=== PATIENT | female | born 1975 | race Caucasian/White ===

== ENCOUNTER → 2016-05-25 | Outpatient (CLI) | payer OTHER ==
[2016-04-26 20:34] VITALS: BP 128/60
[~2016-05-25] MED LIST: AMLO5TAB2 PO; ASPI325T11 PO; ATOR40TA59 PO; BUPR100T11 PO; BUSP10TA PO; CLON0.5T3 PO; LORA0.5T PO; METO25TA4 PO; ONDA4TAB7 PO; OXYC-323 PO; PROP20TA PO; RANI300T3 PO; TRAM-29 PO; TRIA1CAP3 PO; VENL150C PO; VENL75CA6 PO
--- NOTE | 2016-05-25 09:08 | RAD ---
Indication pain AP and lateral views of the cervical spine were obtained as well as an odontoid view and a swimmer's view. Vertebral height is well maintained. Alignment is normal. Significant disc space narrowing is not seen at any level. Small osteophyte is noted associated with C5. The prevertebral soft tissues appear normal. IMPRESSION: No acute or significant finding in the cervical spine on plain films
--- NOTE | 2016-05-25 09:11 | RAD ---
Indication pain. Externally and internally rotated views of the right shoulder were obtained as well as a Y view. No bony abnormality is seen
--- NOTE | 2016-05-25 09:13 | RAD ---
Indication pain. PA and lateral views of the chest were obtained. Comparison is made to an examination 12/22/2015. Note is made of a CT examination of the chest 04/13/2016. The heart and pulmonary vessels appear normal. The lungs are clear. There is no pleural fluid or pneumothorax. IMPRESSION: No acute or significant finding in the chest
== END | disposition home or self-care (01) ==
LOC: RAD 08:01
PROVIDERS: ATTEND Surgery
DX: G30.9 Alzheimer's disease, unspecified (principal); M75.41 Impingement syndrome of right shoulder; M54.2 Cervicalgia; R09.1 Pleurisy
CPT/HCPCS: 71020; 72040; 73030

== ENCOUNTER → 2016-12-26 | Outpatient (CLI) | payer OTHER ==
[2016-04-26 20:34] VITALS: BP 128/60
[~2016-12-26] MED LIST changes: +GADOBUTROL 10 MMOL/10 ML VIAL IV ONE; -TRAM-29 PO; +TRAM-48 PO
--- NOTE | 2016-12-26 11:05 | KCIC ---
Examination: MRI chest without and with IV contrast HISTORY: History of mass on the back, pain COMPARISON: None available TECHNIQUE: Multiplanar, multisequence MR imaging of the right chest back was performed without and with IV contrast. IV contrast used was 8 cc gadavist. FINDINGS: At the site of marker placement in the mid back region, there is a 5.2 x 1.8 x 5.6 cm fatty lesion in the subcutaneous region of the right mid back transverse, AP, CC dimension without obvious enhancement or thickened / nodular septations, likely a lipoma On the postcontrast images no obvious enhancement of this lesion identified. IMPRESSION: 1. Fatty lesion identified in the right posterior mid back pain in the subcutaneous region centimeters dimension of 5.6 cm likely a lipoma without obvious enhancement. Electronically signed by: Owen Casas MD (12/26/2016 11:02 AM) [facility]
== END | disposition home or self-care (01) ==
LOC: KCIC MRI 09:05
PROVIDERS: ATTEND Specialist
DX: M54.6 Pain in thoracic spine (principal); R22.2 Localized swelling, mass and lump, trunk
CPT/HCPCS: 71552; 82565; A9585

== ENCOUNTER → 2017-07-31 | Outpatient (CLI) | payer OTHER | END | disposition home or self-care (01) | LOC: KCIC US 08:16 | DX: N93.9 Abnormal uterine and vaginal bleeding, unspecified (principal) | CPT/HCPCS: 76830; 76856 ==

== ENCOUNTER → 2017-11-20 | Day surgery (SDC) | payer OTHER ==
[~2017-11-20] MED LIST changes: +0.9 % SODIUM CHLORIDE 10 ML DISP.SYRIN. IV; -AMLO5TAB2 PO; -ASPI325T11 PO; -ATOR40TA59 PO; -BUPR100T11 PO; -BUSP10TA PO; -CLON0.5T3 PO; +DESFLURANE 61 TO 120 MINUTES IH; +DEXAMETHASONE SOD PHOS 20 MG/5 ML VIAL.; +DOCUSATE SODIUM 100 MG CAPSULE. PO; +FAMOTIDINE 20 MG/2 ML VIAL IVP; -GADOBUTROL 10 MMOL/10 ML VIAL IV ONE; +GLYCOPYRROLATE 1 MG/5 ML VIAL.; +IV RINGERS,LACTATED 1000ML 1,000 ML IV; +KETOROLAC 30 MG/ML INJ.; +KETOROLAC 30 MG/ML INJ. IV; +LIDOCAINE 1% PF 2 ML VIAL. ID; +LIDOCAINE 2% PF Vial for OR 5 ML VIAL.; -LORA0.5T PO; -METO25TA4 PO; +MORPHINE SULFATE 2 MG/ML DISP.SYRIN.; +NEOSTIGMINE METHYLSULFATE 5 MG/5 ML SYRINGE.; -ONDA4TAB7 PO; +ONDANSETRON PF 4 MG/2 ML VIAL.; +ONDANSETRON PF 4 MG/2 ML VIAL. IV; -OXYC-323 PO; +POTASSIUM CL 20MEQ-0.45% NACL 1,000 ML IV; +PROCHLORPERAZINE 10 MG/2 ML VIAL.; -PROP20TA PO; +PROPOFOL 20 ML IV; -RANI300T3 PO; +ROCURONIUM 50 MG/5 ML VIAL.; +SCOPOLAMINE 1.5MG PATCH. TD; -TRAM-48 PO; -TRIA1CAP3 PO; -VENL150C PO; -VENL75CA6 PO; +fentaNYL PF VIAL 100 MCG/2 ML VIAL; +fentaNYL PF VIAL 100 MCG/2 ML VIAL IV; +oxyCODONE/APAP 5/325 1 TAB TABLET PO
[2017-11-20 08:17] LABS: ADD MAN DIFF? NO
[2017-11-20 08:27] LABS: BASO # 0.1 x10^3/uL (0.0-0.2); BASO % 1 % (0-3); EOS # 0.2 x10^3/uL (0.0-0.7); EOS % 3 % (0-3); HEMATOCRIT 36.8 % (36.0-47.0); HEMOGLOBIN 12.8 g/dL (12.0-15.5); LYMPH # 2.9 x10^3/uL (1.0-4.8); LYMPH % 46 % (24-48); MEAN CORPUSCULAR HEMOGLOBIN 30 pg (25-35); MEAN CORPUSCULAR HGB CONC 35 g/dL (31-37); MEAN CORPUSCULAR VOLUME 86 fL (79-100); MONO # 0.5 x10^3/uL (0.0-1.1); MONO % 8 % (0-9); NEUT # 2.6 x10^3uL (1.8-7.7); NEUT % 42 % (31-73); PLATELET COUNT 251 x10^3/uL (140-400); RED CELL DISTRIBUTION WIDTH 13.2 % (11.5-14.5); WHITE BLOOD COUNT 6.2 x10^3/uL (4.0-11.0)
[2017-11-20 08:28] LABS: ANION GAP 8 (6-14); BLOOD UREA NITROGEN 7 mg/dL (7-20); BUN/CREATININE RATIO 12 (6-20); CALCIUM 9.1 mg/dL (8.5-10.1); CARBON DIOXIDE 27 mmol/L (21-32); CHLORIDE 103 mmol/L (98-107); CREATININE 0.6 mg/dL (0.6-1.0); GFR 109.6; GLUCOSE 115 mg/dL (70-99); POTASSIUM 3.6 mmol/L (3.5-5.1); SODIUM 138 mmol/L (136-145)
[2017-11-20 08:34] LABS: ALBUMIN 3.8 g/dL (3.4-5.0); ALBUMIN/GLOBULIN RATIO 0.9 (1.0-1.7); ALK PHOS 91 U/L (46-116); ALT (SGPT) 63 U/L (14-59); AST (SGOT) 41 U/L (15-37); TOTAL BILIRUBIN 0.4 mg/dL (0.2-1.0); TOTAL PROTEIN 7.9 g/dL (6.4-8.2)
[2017-11-20 08:35] LABS: PROTHROMBIN TIME PATIENT 12.8 SEC (11.7-14.0)
[2017-11-20 08:36] LABS: PARTIAL THROMBOPLASTIN TIME 28 SEC (24-38)
[2017-11-20] MEDS: BUPIVACAINE-EPI 0.5%-1:200000 50 ML VIAL. (09:59)
[2017-11-20] MEDS: IOHEXOL 300 MG/ML 100ML VIAL. (10:18)
[2017-11-20 11:36] LABS: POC GLUCOSE 150 mg/dL (70-99)
[2017-11-20] MEDS: fentaNYL PF VIAL 100 MCG/2 ML VIAL IV ×4 (11:38→13:09)
[2017-11-20] MEDS: PROCHLORPERAZINE 10 MG/2 ML VIAL. IV (11:51)
[2017-11-20] MEDS: KETOROLAC 30 MG/ML INJ. IV (11:57)
[2017-11-20] MEDS: MORPHINE SULFATE 2 MG/ML DISP.SYRIN. IV ×2 (12:13→12:26)
[2017-11-20] MEDS: HYDROcodone/APAP 7.5/325MG 1 TAB TABLET PO (13:09)
== END | disposition home or self-care (01) ==
LOC: SURG 07:43
DX: K81.1 Chronic cholecystitis (principal); E11.9 Type 2 diabetes mellitus without complications; I10 Essential (primary) hypertension; Z79.01 Long term (current) use of anticoagulants; Z98.890 Other specified postprocedural states; Z90.710 Acquired absence of both cervix and uterus; E78.00 Pure hypercholesterolemia, unspecified; N20.0 Calculus of kidney; F31.9 Bipolar disorder, unspecified; F41.9 Anxiety disorder, unspecified; Z82.49 Family history of ischemic heart disease and other diseases of the circulatory system; Z79.84 Long term (current) use of oral hypoglycemic drugs; Z79.4 Long term (current) use of insulin; Z79.899 Other long term (current) drug therapy
CPT/HCPCS: 36415; 80053; 82962; 85025; 85610; 85730; 88304; A7015; J0690; J0780; J1100; J1885; J2001; J2270; J2405; J2704; J2710; J3010; J3490; J7030; J7120; Q9967; S0028

== ENCOUNTER 2017-11-25 11:58 | Emergency (ER) | payer OTHER ==
[~2017-11-25] VITALS: Ht 165.1 cm; Wt 86.2 kg
[~2017-11-25 11:58] MED LIST changes: -0.9 % SODIUM CHLORIDE 10 ML DISP.SYRIN. IV; +AMLO10TA2 PO; +AMLO5TAB2 PO; +ASPI325T11 PO; +ATOR40TA59 PO; +BUPR100T11 PO; +BUSP10TA PO; +CLON0.5T11 PO; -DESFLURANE 61 TO 120 MINUTES IH; -DEXAMETHASONE SOD PHOS 20 MG/5 ML VIAL.; -DOCUSATE SODIUM 100 MG CAPSULE. PO; -FAMOTIDINE 20 MG/2 ML VIAL IVP; -GLYCOPYRROLATE 1 MG/5 ML VIAL.; +HYDR-2762 PO; +INSU100V8 SQ; -IV RINGERS,LACTATED 1000ML 1,000 ML IV; -KETOROLAC 30 MG/ML INJ.; -KETOROLAC 30 MG/ML INJ. IV; -LIDOCAINE 1% PF 2 ML VIAL. ID; -LIDOCAINE 2% PF Vial for OR 5 ML VIAL.; +LORA0.5T PO; +METF500T5 PO; +METO100T7 PO; +METO25TA4 PO; -MORPHINE SULFATE 2 MG/ML DISP.SYRIN.; -NEOSTIGMINE METHYLSULFATE 5 MG/5 ML SYRINGE.; +ONDA4TAB7 PO; -ONDANSETRON PF 4 MG/2 ML VIAL.; -ONDANSETRON PF 4 MG/2 ML VIAL. IV; +OXYC-323 PO; -POTASSIUM CL 20MEQ-0.45% NACL 1,000 ML IV; -PROCHLORPERAZINE 10 MG/2 ML VIAL.; +PROP20TA PO; -PROPOFOL 20 ML IV; +RANI300T3 PO; -ROCURONIUM 50 MG/5 ML VIAL.; -SCOPOLAMINE 1.5MG PATCH. TD; +TRAM-48 PO; +TRIA1CAP3 PO; +VENL150C PO; +VENL150C6 PO; +VENL75CA6 PO; -fentaNYL PF VIAL 100 MCG/2 ML VIAL; -fentaNYL PF VIAL 100 MCG/2 ML VIAL IV; -oxyCODONE/APAP 5/325 1 TAB TABLET PO
[2017-11-25] MEDS ORDERED: IV NORMAL SALINE 1000ML BAG 1,000 ML IV SCH (13:33)
--- NOTE | 2017-11-25 13:38 | PHYS DOC ---
Past Medical History Past Medical History: A-Fib, Depression, DVT, High Cholesterol, Hypertension, Seizure, Stroke, Other Additional Past Medical Histor: bells palsy Past Surgical History: Hysterectomy, Tonsillectomy Alcohol Use: Occasionally Drug Use: None Adult General Chief Complaint Chief Complaint: POST-OP PROBLEM HPI HPI Patient is a 42-year-old white female, with a past history of a hysterectomy, who underwent a laparoscopic cholecystectomy this past Sunday. She states that this morning, she woke up in the middle the night to urinate and had no difficulty but when awakening this morning, she began experiencing difficulty urinating, she was straining hard to push like she had to urinate but was unable to do so. She states she has a history of renal stones, which were found in each kidney when they didn't imaging for evaluation of her gallbladder, and she states that she did develop blood in her urine after she strained to push out a little bit a urine. There is no bladder scanner available in the emergency Department before was placed upon arrival the patient had about 50 mL of urine in her catheter bag. She is requesting the catheter be removed, which will be done. She denies any flank pain, fever, chills, nausea, vomiting. There are no alleviating, or exacerbating factors to her symptoms. Review of Systems Review of Systems Constitutional: Denies fever or chills [] Eyes: Denies change in visual acuity, redness, or eye pain [] HENT: Denies nasal congestion or sore throat [] Respiratory: Denies cough or shortness of breath [] Cardiovascular: No additional information not addressed in HPI [] GI: Denies abdominal pain, nausea, vomiting, bloody stools or diarrhea [] : Denies dysuria. Reports hematuria [] Musculoskeletal: Denies flank or back pain or joint pain [] Integument: Denies rash or skin lesions [] Neurologic: Denies headache, focal weakness or sensory changes [] Endocrine: Denies polyuria or polydipsia [] All other systems were reviewed and found to be within normal limits, except as documented in this note. Current Medications Current Medications Current Medications Medications (Trade) Dose Ordered Sig/Deejay Start Time Stop Time Status Last Admin Dose Admin Ceftriaxone Sodium 50 ml @ 100 mls/hr 1X ONCE 11/25/17 14:30 11/25/17 14:59 DC 11/25/17 14:23 100 MLS/HR Ketorolac Tromethamine (Toradol) 30 mg 1X ONCE 11/25/17 13:45 11/25/17 13:46 DC 11/25/17 14:21 30 MG Sodium Chloride 1,000 ml @ 1,000 mls/hr Q1H 11/25/17 13:33 11/25/17 14:32 DC 11/25/17 14:27 1,000 MLS/HR Allergies Allergies Allergies Coded Allergies Type Severity Reaction Last Updated Verified No Known Drug Allergies 11/20/17 No Physical Exam Physical Exam PHYSICAL EXAM: CONSTITUTIONAL: Well developed, well nourished HEAD: normocephalic, atraumatic EENT: PERRL, EOMI. Conjunctivae normal color, sclerae non-icteric; moist mucous membranes. NECK: Supple, non-tender; no meningismus. LUNGS: Lungs CTA, breathing even and unlabored. Normal air movement. HEART: Regular rate and rhythm, no murmur CHEST: No deformity; non-tender ABDOMEN: The abdomen is soft, there are healing laparoscopy scars in the anterior abdominal wall. There is mild diffuse tenderness to palpation in the pelvis, without focal tenderness, rebound, or guarding. The remainder the abdomen is relatively non-tender, no masses or bruits. EXTREM: Normal ROM; no deformity, no calf tenderness. Normal pulses palpable in all extremities. There is no pedal edema. SKIN: No rash; no diaphoresis NEURO: Alert; normal speech and cognition; CN's grossly intact; strength grossly intact without focal deficit. BACK: No CVA TTP. Current Patient Data Vital Signs Vital Signs Date Time Temp Pulse Resp B/P (MAP) Pulse Ox O2 Delivery O2 Flow Rate FiO2 11/25/17 13:00 97.8 107 20 125/90 (102) 97 Room Air 97.8 Lab Values Laboratory Tests Test 11/25/17 13:27 11/25/17 13:45 Urine Collection Type U cath Urine Color [place] Urine Clarity Turbid Urine pH 5.0 Urine Specific Trevor >=1.030 Urine Protein 100 mg/dL (NEG-TRACE) Urine Glucose (UA) Negative mg/dL (NEG) Urine Ketones (Stick) Trace mg/dL (NEG) Urine Blood Large (NEG) Urine Nitrite Positive (NEG) Urine Bilirubin Moderate (NEG) Urine Urobilinogen Dipstick 1.0 mg/dL (0.2 mg/dL) Urine Leukocyte Esterase Large (NEG) Urine RBC 20-40 /HPF (0-2) Urine WBC >40 /HPF (0-4) Urine Squamous Epithelial Cells Few /LPF Urine Bacteria Few /HPF (0-FEW) Urine Hyaline Casts Occasional /HPF Urine Mucus Marked /LPF White Blood Count 11.1 x10^3/uL (4.0-11.0) H Red Blood Count 4.61 x10^6/uL (3.50-5.40) Hemoglobin 13.6 g/dL (12.0-15.5) Hematocrit 40.0 % (36.0-47.0) Mean Corpuscular Volume 87 fL (79-100) Mean Corpuscular Hemoglobin 30 pg (25-35) Mean Corpuscular Hemoglobin Concent 34 g/dL (31-37) Red Cell Distribution Width 13.2 % (11.5-14.5) Platelet Count 274 x10^3/uL (140-400) Neutrophils (%) (Auto) 66 % (31-73) Lymphocytes (%) (Auto) 24 % (24-48) Monocytes (%) (Auto) 7 % (0-9) Eosinophils (%) (Auto) 2 % (0-3) Basophils (%) (Auto) 1 % (0-3) Neutrophils # (Auto) 7.3 x10^3uL (1.8-7.7) Lymphocytes # (Auto) 2.7 x10^3/uL (1.0-4.8) Monocytes # (Auto) 0.7 x10^3/uL (0.0-1.1) Eosinophils # (Auto) 0.3 x10^3/uL (0.0-0.7) Basophils # (Auto) 0.1 x10^3/uL (0.0-0.2) Sodium Level 136 mmol/L (136-145) Potassium Level 4.5 mmol/L (3.5-5.1) Chloride Level 101 mmol/L (98-107) Carbon Dioxide Level 29 mmol/L (21-32) Anion Gap 6 (6-14) Blood Urea Nitrogen 8 mg/dL (7-20) Creatinine 0.6 mg/dL (0.6-1.0) Estimated GFR (Cockcroft-Gault) 109.6 BUN/Creatinine Ratio 13 (6-20) Glucose Level 109 mg/dL (70-99) H Calcium Level 9.2 mg/dL (8.5-10.1) Total Bilirubin 1.2 mg/dL (0.2-1.0) H Aspartate Amino Transferase (AST) 90 U/L (15-37) H Alanine Aminotransferase (ALT) 205 U/L (14-59) H Alkaline Phosphatase 174 U/L (46-116) H Total Protein 7.6 g/dL (6.4-8.2) Albumin 3.8 g/dL (3.4-5.0) Albumin/Globulin Ratio 1.0 (1.0-1.7) Lipase 91 U/L (73-393) Laboratory Tests 11/25/17 13:45 Laboratory Tests 11/25/17 13:45 EKG EKG [] Radiology/Procedures Radiology/Procedures [PROCEDURE: CT ABDOMEN PELVIS WO CONTRAST CT of the abdomen and pelvis without contrast, 11/25/2017: HISTORY: Pelvic pain, difficulty urinating Noncontrast scans were obtained as requested utilizing the renal stone protocol. There are single small bilateral intrarenal calculi. The largest of these lies on the right and measures 6 mm. The renal collecting systems and ureters are not dilated. No ureteral calculus is identified. There are several bilateral pelvic calcifications compatible with phleboliths. The partially filled urinary bladder is unremarkable. There is mild linear scarring and/or atelectasis in the lung bases. There is a tiny fluid collection in the gallbladder fossa compatible with the given history of a recent cholecystectomy. There is only minimal streaky increased density in the fat in this region compatible with normal postop inflammation. The unopacified liver shows no abnormality. No pancreatic abnormality is seen. The spleen is at the upper limits of normal in size.. There is mild aortoiliac calcific plaquing. No abdominal or pelvic adenopathy is seen. The uterus is surgically absent. Small pelvic structures which most likely represent remaining ovaries are of normal size. The bowel loops are not dilated. The appendix is visualized and shows no abnormality. No free fluid or free air is evident in the abdomen or pelvis. IMPRESSION: 1. Minimal postsurgical change in the gallbladder fossa. 2. Single small bilateral nonobstructing intrarenal calculi. ] Course & Med Decision Making Course & Med Decision Making Pertinent Labs and Imaging studies reviewed. (See chart for details) [3:40 PM: The patient's condition remained stable she is feeling significantly better at this time. I do suspect her symptoms of urinary urgency and inability to void is likely related to urinary tract infection. I discussed test results with the patient including a mildly elevated LFTs in the for further outpatient follow-up, and return precautions in detail. The patient's LFT elevation is likely due to postoperative cholecystectomy state. She has an appointment to follow up with her surgeon or weakness coming Sunday, and I encouraged her to mention her abnormal LFTs today for possible further evaluation.] Dragon Disclaimer Dragon Disclaimer This electronic medical record was generated, in whole or in part, using a voice recognition dictation system. Departure Departure Impression: Primary Impression: UTI (urinary tract infection) Disposition: HOME, SELF-CARE Condition: STABLE Referrals: CASSIUS FINNEY (PCP) Patient Instructions: Urinary Tract Infection Scripts Phenazopyridine Hcl (PYRIDIUM) 200 Mg Tablet 200 MG PO BID for 3 Days, #6 TAB Prov: GUCCI FERRER MD 11/25/17 Sulfamethoxazole/Trimethoprim (BACTRIM DS TABLET) 1 Each Tablet 1 TAB PO BID, #14 TAB Prov: GUCCI FERRER MD 11/25/17 GUCCI FERRER MD Nov 25, 2017 13:38
[2017-11-25] MEDS ORDERED: KETOROLAC 30 MG/ML VIAL. IV ONE (13:45)
[2017-11-25 13:48] LABS: BILIRUBIN,URINE MODERATE (NEG); CLARITY,URINE TURBID; COLOR,URINE ORANGE; NITRITE,URINE POSITIVE (NEG); PROTEIN,URINE 100 mg/dL (NEG-TRACE)
[2017-11-25 13:54] LABS: BASO # 0.1 x10^3/uL (0.0-0.2); BASO % 1 % (0-3); EOS # 0.3 x10^3/uL (0.0-0.7); EOS % 2 % (0-3); HEMOGLOBIN 13.6 g/dL (12.0-15.5); LYMPH # 2.7 x10^3/uL (1.0-4.8); LYMPH % 24 % (24-48); MEAN CORPUSCULAR HEMOGLOBIN 30 pg (25-35); MEAN CORPUSCULAR HGB CONC 34 g/dL (31-37); MEAN CORPUSCULAR VOLUME 87 fL (79-100); MONO # 0.7 x10^3/uL (0.0-1.1); MONO % 7 % (0-9); NEUT # 7.3 x10^3uL (1.8-7.7); NEUT % 66 % (31-73); PLATELET COUNT 274 x10^3/uL (140-400); RED BLOOD COUNT 4.61 x10^6/uL (3.50-5.40); RED CELL DISTRIBUTION WIDTH 13.2 % (11.5-14.5); WHITE BLOOD COUNT 11.1 x10^3/uL (4.0-11.0)
[2017-11-25 14:00] LABS: BACTERIA,URINE FEW /HPF (0-FEW); RBC,URINE 20-40 /HPF (0-2); SQUAMOUS EPITHELIAL CELL,UR FEW /LPF; WBC,URINE >40 /HPF (0-4)
[2017-11-25 14:01] LABS: HYALINE CASTS, URINE OCCASIONAL /HPF
[2017-11-25 14:04] LABS: CALCIUM 9.2 mg/dL (8.5-10.1); CREATININE 0.6 mg/dL (0.6-1.0); GFR 109.6; POTASSIUM 4.5 mmol/L (3.5-5.1)
[2017-11-25 14:09] LABS: ALBUMIN 3.8 g/dL (3.4-5.0); TOTAL BILIRUBIN 1.2 mg/dL (0.2-1.0); TOTAL PROTEIN 7.6 g/dL (6.4-8.2)
[2017-11-25 14:30] VITALS: BP 115/72
--- NOTE | 2017-11-25 15:26 | RAD ---
CT of the abdomen and pelvis without contrast, 11/25/2017: HISTORY: Pelvic pain, difficulty urinating Noncontrast scans were obtained as requested utilizing the renal stone protocol. There are single small bilateral intrarenal calculi. The largest of these lies on the right and measures 6 mm. The renal collecting systems and ureters are not dilated. No ureteral calculus is identified. There are several bilateral pelvic calcifications compatible with phleboliths. The partially filled urinary bladder is unremarkable. There is mild linear scarring and/or atelectasis in the lung bases. There is a tiny fluid collection in the gallbladder fossa compatible with the given history of a recent cholecystectomy. There is only minimal streaky increased density in the fat in this region compatible with normal postop inflammation. The unopacified liver shows no abnormality. No pancreatic abnormality is seen. The spleen is at the upper limits of normal in size.. There is mild aortoiliac calcific plaquing. No abdominal or pelvic adenopathy is seen. The uterus is surgically absent. Small pelvic structures which most likely represent remaining ovaries are of normal size. The bowel loops are not dilated. The appendix is visualized and shows no abnormality. No free fluid or free air is evident in the abdomen or pelvis. IMPRESSION: 1. Minimal postsurgical change in the gallbladder fossa. 2. Single small bilateral nonobstructing intrarenal calculi. PQRS Compliance Statement: One or more of the following individualized dose reduction techniques were utilized for this examination: 1. Automated exposure control 2. Adjustment of the mA and/or kV according to patient size 3. Use of iterative reconstruction technique Electronically signed by: Mp Lanza MD (11/25/2017 3:22 PM) [facility]
[2017-11-25] MEDS ORDERED: SULF1TAB24 PO (15:46)
[2017-11-25] MEDS ORDERED: PHEN-318 PO (15:46)
== END 2017-11-25 16:10 | disposition home or self-care (01) ==
LOC: ER 11:58
DX: N39.0 Urinary tract infection, site not specified (principal); I48.91 Unspecified atrial fibrillation; E78.00 Pure hypercholesterolemia, unspecified; I10 Essential (primary) hypertension; G51.0 Bell's palsy; Z86.73 Personal history of transient ischemic attack (TIA), and cerebral infarction without residual deficits; Z90.710 Acquired absence of both cervix and uterus; Z86.718 Personal history of other venous thrombosis and embolism
CPT/HCPCS: 36415; 74176; 80053; 81001; 83690; 85025; 87086; 96365; 96375; 99285; J0690; J1885; J7030